=== PATIENT | female | born 1985 | race Caucasian/White ===

== ENCOUNTER 2018-08-09 11:03 | Emergency (ER) | payer OTHER ==
[2018-08-09 11:45] LABS: PLATELET COUNT 164 10^3/uL (150-400)
--- NOTE | 2018-08-09 14:27 | EDPHY ---
H & P Stated Complaint: fever, muscle stiffness, FARR starting night, hx Lupus Time Seen by Provider: 08/09/18 12:14 HPI/ROS: Chief Complaint: Fever, malaise, lupus flare HPI: 32-year-old woman with a history of lupus is presenting complaining of 3 days of symptoms consistent with a lupus flare including fever to 103, general malaise, mild nausea but no vomiting. No cough. No shortness of breath. No abdominal pain. No urinary urgency or frequency. Symptoms similar to when she had a lupus flare 2 years ago. At that point she was thrombocytopenic. 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 She had a CBC done by her denture packer yesterday which showed normal platelets and a mild drop in her white blood cell count. She last had acetaminophen last night, 1000 mg at 10:30 a.m.. ROS: 10 systems were reviewed and were negative except those elements noted in the HPI. PMH: Lupus, ITP Social History: No smoking, no alcohol, no recreational drug use Family History: non-contributory Physical Exam: Gen: Awake, Alert, No Distress HEENT: Nose: no rhinorrhea Eyes: PERRLA, EOMI Mouth: Moist mucosa Neck: Supple, no JVD Chest: nontender, lungs clear to auscultation Heart: S1, S2 normal, no murmur Abd: Soft, non-tender, no guarding Back: no CVA tenderness, no midline tenderness Ext: no edema, non-tender Skin: no rash Neuro: CN II-XII intact, Sensation grossly intact, Strength 5/5 in bilateral upper and lower extremities - Personal History LMP (Females 10-55): IUD In Place - Medical/Surgical History Hx Asthma: No Hx Chronic Respiratory Disease: No Hx Diabetes: No Hx Cardiac Disease: No Hx Renal Disease: No Hx Cirrhosis: No Hx Alcoholism: No Hx HIV/AIDS: No Hx Splenectomy or Spleen Trauma: No Other PMH: lupus/hashimotos,hx of hernia repair as a child - Social History Smoking Status: Current every day smoker Constitutional: Initial Vital Signs Temperature (C) 37.7 C 08/09/18 11:06 Heart Rate 111 H 08/09/18 11:06 Respiratory Rate 18 08/09/18 11:06 Blood Pressure 134/86 H 08/09/18 11:06 O2 Sat (%) 96 08/09/18 11:06 O2 Delivery Mode Room Air Allergies/Adverse Reactions: No Known Allergies Allergy (Verified 08/09/18 11:05) Home Medications: Medication Instructions Recorded Escitalopram Oxalate [Lexapro 10 10 mg PO DAILY 11/08/16 MG] Hydroxychloroquine Sulfate 400 mg PO DAILY 11/08/16 [Plaquenil 200 mg (*)] Levothyroxine [Synthroid 50 mcg 50 mcg PO DAILY06 11/08/16 (*)] CLONAZEPAM 08/09/18 predniSONE 60 mg PO DAILY #9 tab 08/09/18 Medical Decision Making - Diagnostics Imaging Results: Imaging Impressions Chest X-Ray 08/09/18 12:25 Impression: No pneumonia. Minimal left basilar atelectasis. ED Course/Re-evaluation: Patient is not have a leukocytosis. Her platelet count is normal. Chest x-ray is negative. Urinalysis is negative. I do not see any source of infection. She has not taken antipyretics for over 16 hr. I have discussed with Dr. Amelia Adame, infectious Disease. She is not recommending cultures or any antibiotics at this time. She does support starting the patient on prednisone for possible was flared. I will give further constantly return precautions for worsening fevers cough shortness of breath radius other concerns. Dr. Adame is not feel any other workup is indicated at this time. - Data Points Laboratory Results: Laboratory Results 08/09/18 11:30 08/09/18 11:30 08/09/18 08/09/18 08/09/18 13:43 11:30 11:30 WBC 3.25 10^3/uL L 10^3/uL (3.80-9.50) RBC 4.65 10^6/uL 10^6/uL (4.18-5.33) Hgb 14.7 g/dL g/dL (12.6-16.3) Hct 41.9 % % (38.0-47.0) MCV 90.1 fL fL (81.5-99.8) MCH 31.6 pg pg (27.9-34.1) MCHC 35.1 g/dL g/dL (32.4-36.7) RDW 12.0 % % (11.5-15.2) Plt Count 164 10^3/uL 10^3/uL (150-400) MPV 9.6 fL fL (8.7-11.7) Neut % (Auto) 75.7 % H % (39.3-74.2) Lymph % (Auto) 14.5 % L % (15.0-45.0) [place] % (Auto) 8.6 % % (4.5-13.0) Eos % (Auto) 0.3 % L % (0.6-7.6) Baso % (Auto) 0.6 % % (0.3-1.7) Nucleat RBC Rel Count 0.0 % % (0.0-0.2) Absolute Neuts (auto) 2.46 10^3/uL 10^3/uL (1.70-6.50) Absolute Lymphs (auto) 0.47 10^3/uL L 10^3/uL (1.00-3.00) Absolute Monos (auto) 0.28 10^3/uL L 10^3/uL (0.30-0.80) Absolute Eos (auto) 0.01 10^3/uL L 10^3/uL (0.03-0.40) Absolute Basos (auto) 0.02 10^3/uL 10^3/uL (0.02-0.10) Absolute Nucleated RBC 0.00 10^3/uL 10^3/uL (0-0.01) Immature Gran % 0.3 % % (0.0-1.1) Immature Gran # 0.01 10^3/uL 10^3/uL (0.00-0.10) RBC/WBC/PLT Morphology TNP Platelet Estimate TNP Sodium 139 mEq/L mEq/L (135-145) Potassium 4.3 mEq/L mEq/L (3.3-5.0) Chloride 101 mEq/L mEq/L (97-110) Carbon Dioxide 28 mEq/l mEq/l (22-31) Anion Gap 10 mEq/L mEq/L (8-16) BUN 9 mg/dL mg/dL (7-23) Creatinine 0.7 mg/dL mg/dL (0.6-1.0) Estimated GFR > 60 Glucose 79 mg/dL mg/dL (70-100) Calcium 9.4 mg/dL mg/dL (8.5-10.4) Urine Color YELLOW Urine Appearance CLEAR Urine pH 7.0 (5.0-7.5) Ur Specific [place] 1.011 (1.002-1.030) Urine Protein NEGATIVE (NEGATIVE) Urine Ketones NEGATIVE (NEGATIVE) Urine Blood NEGATIVE (NEGATIVE) Urine Nitrate NEGATIVE (NEGATIVE) Urine Bilirubin NEGATIVE (NEGATIVE) Urine Urobilinogen NEGATIVE EU EU (0.2-1.0) Ur Leukocyte Esterase NEGATIVE (NEGATIVE) Urine Glucose NEGATIVE (NEGATIVE) Departure - Departure Disposition: Home, Routine, Self-Care Clinical Impression: Fever, Lupus (systemic lupus erythematosus) Condition: Good Instructions: Fever in Adults (ED) Additional Instructions: Return to the emergency depart for high fever, cough, shortness of breath, abdominal pain, worsening headache, nausea, vomiting, or any other concerns. Follow up with her slip cover operator on Saturday for further evaluation. Referrals: Aditi Hilliard MD [Primary Care Provider] - As per Instructions Prescriptions: predniSONE 60 mg PO DAILY #9 tab
[2018-08-09] MEDS ORDERED: predniSONE 20 MG TAB PO ONE (14:33)
[2018-08-09 14:34] VITALS: BP 116/76
== END 2018-08-09 14:50 | disposition home or self-care (01) ==
DX: R50.9 Fever, unspecified (principal); R11.0 Nausea; R53.81 Other malaise; M32.9 Systemic lupus erythematosus, unspecified; F17.200 Nicotine dependence, unspecified, uncomplicated
CPT/HCPCS: J7512